=== PATIENT | female | born 1990 | race Caucasian/White ===

== ENCOUNTER 2023-07-27 15:13 | Emergency (ER) | payer OTHER, SELFPAY ==
[2023-07-27 15:31] VITALS: BP 116/71; PULSE 66; RESP 16; TEMP 36.9; O2SAT 100
--- NOTE | 2023-07-27 15:41 | ED.SKABFB ---
HPI - Skin/Abscess/Foreign Bdy General Chief complaint: Skin/Abscess/Foreign Body Stated complaint: Posion Jaida Time Seen by Provider: 07/27/23 15:41 Source: patient Mode of arrival: ambulatory Limitations: no limitations History of Present Illness HPI narrative: 33-year-old female presents with complaint of poison jaida for 1 week. Started to bilateral hands and wrists and since then has spread to trunk, bilateral legs. Applying triamcinolone steroid cream without relief of symptoms. All systems reviewed and negative except as noted above. Related Data Allergies Allergy/AdvReac Type Severity Reaction Status Date / Time No Known Allergies Allergy Verified 07/27/23 15:30 Review of Systems Review of Systems: CONSTITUTIONAL: Denies fever, chills, or sweats. EYES: Denies visual changes, redness, or discharge. ENT: Denies rhinorrhea, congestion, sore throat, or otalgia. CARDIOVASCULAR: Denies chest pain, palpitations, or edema. RESPIRATORY: Denies cough or dyspnea. GASTROINTESTINAL: Denies abdominal pain, nausea, vomiting, or diarrhea. GENITOURINARY: Denies dysuria or hematuria. SKIN: Reports poison jaida rash with itching. MUSCULOSKELETAL: Denies back pain, joint pain, or myalgia. NEUROLOGIC: Denies headache, numbness, or weakness. PSYCHIATRIC: Denies anxiety or depression. All other systems reviewed are negative, except as documented in HPI. PMFSH Comments At time of signature, agree with nursing past medical, surgical, social and family history. There is no relevant family history pertinent to the presenting complaint. Exam Narrative: GENERAL: This is a well-nourished, well-developed patient, in no apparent distress. HEAD: normocephalic, atraumatic. EYES: PERRL. Sclera clear/white. Vision is grossly intact. EARS: External ears normal NOSE: External nose normal NECK: Neck supple, non-tender without lymphadenopathy, masses or thyromegaly. CARDIOVASCULAR: Regular rate and rhythm without murmurs, gallops, or rubs. RESPIRATORY: Clear to auscultation. Breath sounds equal bilaterally. No wheezes, rales, or rhonchi. SKIN: warm, Dry, intact, good texture and turgor. Erythematous fascicular rash to bilateral thighs, left lower extremity, bilateral hands and wrists, right upper back NEURO: awake, alert, and oriented to person, place and time. There were no obvious focal neurologic abnormalities. EXTREMITIES: No joint tenderness, effusion, or edema noted. Course Course Level of Care: Express Care Visit Vital Signs Vital signs: Vital Signs Temperature 36.9 C 07/27/23 15:31 Pulse Rate 66 07/27/23 15:31 Respiratory Rate 16 07/27/23 15:31 Blood Pressure 116/71 07/27/23 15:31 Pulse Oximetry 100 07/27/23 15:31 Oxygen Delivery Room Air 07/27/23 15:31 Temperature 36.9 C 07/27/23 15:31 Pulse Rate 66 07/27/23 15:31 Respiratory Rate 16 07/27/23 15:31 Blood Pressure 116/71 07/27/23 15:31 Pulse Oximetry 100 07/27/23 15:31 Oxygen Delivery Room Air 07/27/23 15:31 Reviewed MDM - Skin/Abscess/Foreign Bdy MDM Narrative Medical decision making narrative: Patient is aware of diagnosis, understands and agrees to treatment plan. Anticipatory guidance given. Patient agrees to follow-up as directed and is aware of reasons to seek care at the emergency department. Portions of this record may have been created with voice recognition software Differential Diagnosis Differential diagnosis: Likely urticaria and contact dermatitis Discharge Plan Discharge Clinical Impression: Dermatitis due to plants, including poison jaida, sumac, and oak Patient Disposition: Home, Self-Care Condition: Stable Instructions: Antibiotic Form, Poison Jaida (ED) Additional Instructions: You were given an intramuscular dose of Kenalog today to treat poison jaida. Apply topical steroid cream twice a day sparingly to affected areas. Avoid applying to face. Take Benadryl as needed for itching. Avoid scrat
[2023-07-27] MEDS: TRIAMCINOLONE ACET INJ 40 MG/ML VIAL IM (15:50)
== END 2023-07-27 16:16 | disposition home or self-care (01) ==
PROVIDERS: Emergency Provider Nurse Practitioner Family
DX: L25.5 Unspecified contact dermatitis due to plants, except food (principal)
CPT/HCPCS: 96372; 99213; G0463; J3301

== ENCOUNTER 2023-09-17 12:23 | Emergency (ER) | payer OTHER, SELFPAY ==
[2023-09-17 12:28] VITALS: BP 126/78; PULSE 61; RESP 20; TEMP 36.4; O2SAT 100
--- NOTE | 2023-09-17 12:53 | ED.SKABFB ---
HPI - Skin/Abscess/Foreign Bdy General Chief complaint: Skin/Abscess/Foreign Body Stated complaint: Rash Time Seen by Provider: 09/17/23 12:50 Source: patient, RN notes reviewed and old records reviewed Mode of arrival: ambulatory Limitations: no limitations History of Present Illness HPI narrative: 33 year old female who presents to [facility] care with complaints of poison oneil rash back again since yesterday on her right arm and on her bilateral legs which is red raised irritated and itchy. Patient reports that she had the rash a few weeks ago also. Patient reports that she used Donn dish soap and vinegar to rash today, prior episode she received steroid shot and had some steroid cream.. Patient reports that they have baby goat and she thinks she has gotten from petting and playing with them,denies any recent yard work. complaint: rash Onset (ago): day(s) (since yesterday) Tetanus up to date: yes Location: RUE, LLE and RLE Severity: moderate Quality: pruritic Treatments prior to arrival: other (donn dish soap, vinegar) Related Data Allergies Allergy/AdvReac Type Severity Reaction Status Date / Time No Known Allergies Allergy Verified 07/27/23 15:30 Review of Systems Review of Systems: CONSTITUTIONAL: Denies fever, chills, or sweats. CARDIOVASCULAR: Denies chest pain, palpitations, or edema. RESPIRATORY: Denies cough or dyspnea. SKIN: Reports red raised rash to her right forearm and to bilateral legs which is itchy MUSCULOSKELETAL: Denies joint pain or myalgia. NEUROLOGIC: Denies headache, numbness, or weakness. All systems reviewed & are unremarkable except as noted in HPI and below [facility] Past Medical History Medical History (Updated 09/19/23 @ 08:37 by Amaya Clark NP) No pertinent past medical history Surgical History Surgical History (Updated 09/19/23 @ 08:38 by Amaya Clark NP) No history of previous surgery Social History Social History (Updated 09/19/23 @ 08:37 by Amaya Clark NP) Smoking status: Never smoker Alcohol intake: current Alcohol use details: social Substance use type: does not use Living arrangements: with family Gender identity (if verbalized by the patient): Female Comments At time of signature, agree with nursing past medical, surgical, social and family history. There is no relevant family history pertinent to the presenting complaint Exam Narrative: GENERAL: Well-appearing, well-nourished, and in no acute distress. HEAD: Normocephalic, atraumatic. EYES: PERRLA, conjunctivae clear, and EOMI. ENT: Mucous membranes moist. Oropharynx without edema, erythema or lesions. NECK: Supple. No lymphadenopathy CHEST: Clear to auscultation. No respiratory distress.SAO2 100% on room air HEART: Regular rate and rhythm. SKIN: Warm, dry.? Patches of red raised rash which is itchy to right forearm and to bilateral legs NEURO:? Alert and oriented x3. PSYCH: Normal mood and affect Course Course Emergency Course: Patient is aware of diagnosis, understands and agrees to treatment plan.? Anticipatory guidance given.? Patient agrees to follow-up as directed and is aware of reasons to seek care at the emergency department. Portions of this record may have been created with voice recognition software Level of Care: Express Care Visit Vital Signs Vital signs: Vital Signs Temperature 36.4 C 09/17/23 12:28 Pulse Rate 61 09/17/23 12:28 Respiratory Rate 20 09/17/23 12:28 Blood Pressure 126/78 09/17/23 12:28 Pulse Oximetry 100 09/17/23 12:28 Oxygen Delivery Room Air 09/17/23 12:28 Temperature 36.4 C 09/17/23 12:28 Pulse Rate 61 09/17/23 12:28 Respiratory Rate 20 09/17/23 12:28 Blood Pressure 126/78 09/17/23 12:28 Pulse Oximetry 100 09/17/23 12:28 Oxygen Delivery Room Air 09/17/23 12:28 Reviewed MDM - Skin/Abscess/Foreign Bdy MDM Narrative Medical decision making narrative: Does not appear a
== END 2023-09-17 13:12 | disposition home or self-care (01) ==
PROVIDERS: Emergency Provider Registered Nurse
DX: L23.7 Allergic contact dermatitis due to plants, except food (principal)
CPT/HCPCS: 99213; G0463

== ENCOUNTER 2024-03-07 18:07 | Emergency (ER) | payer OTHER, SELFPAY ==
[2024-03-07 18:12] VITALS: BP 143/66; PULSE 74; RESP 16; TEMP 36.9; O2SAT 100
[2024-03-07 18:25] LABS: EDUAAPPEAR Clear; EDUABILI Negative (Negative); EDUABLOOD Negative (Negative); EDUACOLOR1 Yellow; EDUAGLUCOSE Negative (Negative); EDUAKETONE Negative (Negative); EDUALEUKO Negative (Negative); EDUANITRATE Negative (Negative); EDUAPH 5.5; EDUAPROTEIN Negative (Negative); EDUAUROBILI 0.2
--- NOTE | 2024-03-07 18:28 | ED.FEMALEGU ---
HPI - Female Genitourinary General Chief complaint: Urogenital-Female Stated complaint: Urinary Problem Time Seen by Provider: 03/07/24 18:22 Source: patient and RN notes reviewed Mode of arrival: ambulatory Limitations: no limitations History of Present Illness HPI Narrative: Patient presents today complaining of 2-3 day history of burning with urination and external vulvar itching that extends posteriorly. Denies vaginal discharge. No [id number] treatment prior to arrival. Related Data Allergies Allergy/AdvReac Type Severity Reaction Status Date / Time No Known Allergies Allergy Verified 03/07/24 18:21 Review of Systems Review of Systems: CONSTITUTIONAL: Denies body aches, fever, chills, or sweats. EYES: Denies visual changes, redness, or discharge. ENT: Denies rhinorrhea, congestion, sore throat, or otalgia. CARDIOVASCULAR: Denies chest pain, palpitations, or edema. RESPIRATORY: Denies cough or dyspnea. GASTROINTESTINAL: Denies abdominal pain, nausea, vomiting, or diarrhea. GENITOURINARY: + dysuria, vulvar itching SKIN: Denies rash, itching, or wounds. MUSCULOSKELETAL: Denies back pain, joint pain, or myalgia. NEUROLOGIC: Denies headache, numbness, tingling, or weakness. PSYCH: Denies depression or anxiety. PMFSH Past Medical History Medical History No pertinent past medical history Surgical History Surgical History No history of previous surgery Social History Social History Smoking status: Never smoker Alcohol intake: current Alcohol use details: social Substance use type: does not use Living arrangements: with family Gender identity (if verbalized by the patient): Female Comments At time of signature, I have reviewed and agree with nursing past medical, surgical, social and family history unless otherwise noted. Please see nursing chart for further information. There is no relevant family history pertinent to the presenting complaint Exam Narrative: GENERAL: Well-appearing, well-nourished, and in no acute distress. HEAD: Normocephalic, atraumatic. EYES: EOMI. No redness or drainage. Conjunctivae normal. ENT: Mucous membranes pink and moist. NECK: Normal AROM. CHEST: No respiratory distress. : Mild irritation to the vulva and surrounding the vagina. Scant white discharge. EXTREMITIES: Normal range of motion. No edema. SKIN: Warm, dry, no rash. Capillary refill normal. Normal skin turgor. NEURO: No focal deficits. Alert and oriented x3. Gait steady. PSYCH: Normal affect. No signs of depression or anxiety. Course Course Level of Care: Express Care Visit Vital Signs Vital signs: Vital Signs Temperature 98.5 F 03/07/24 18:12 Pulse Rate 74 03/07/24 18:12 Respiratory Rate 16 03/07/24 18:12 Blood Pressure 143/66 H 03/07/24 18:12 Pulse Oximetry 100 03/07/24 18:12 Oxygen Delivery Room Air 03/07/24 18:12 Temperature 98.5 F 03/07/24 18:12 Pulse Rate 74 03/07/24 18:12 Respiratory Rate 16 03/07/24 18:12 Blood Pressure 143/66 H 03/07/24 18:12 Pulse Oximetry 100 03/07/24 18:12 Oxygen Delivery Room Air 03/07/24 18:12 Reviewed MDM - Female Genitourinary MDM Narrative Medical decision making narrative: Urinalysis is not consistent with UTI. Patient's exam is likely consistent with candidal vulvovaginitis. Will treat with fluconazole. Recommend clotrimazole externally as well. Anticipatory guidance given. Differential Diagnosis Differential diagnosis: Likely urinary tract infection, bacterial vaginosis, vaginitis and cystitis Lab Data Attestation: I reviewed the patient's lab results. Labs: Lab Results 03/07/24 Range/Units 18:23 POC Urine Color Yellow POC Urine Clarity Clear POC Urine pH 5.5 POC Ur Specif [place] 1.030 POC Urine Protein Negative (Negative) POC Ur Glucose (UA) Negative (Negative) POC Urine Ketones Negative (Negative) POC Urine Blood Negative (Negative) POC Urine Nitrite Negative (Negative) POC Urine Bilirubin Negative (Negative) POC Urine Urobilinogen 0.2 POC U Leukocyte Esteras Negative (Negative) Critical Care Time Critical Care Time Critical Care Time: No Discharge Plan Discharge Clinical Impression: Candidal vulvovaginitis Patient Disposition: Home, Self-Care Condition: Stable Instructions: Yeast Infection (ED) Additional Instructions: Please take the fluconazole as prescribed. You can also try some external clotrimazole (Lotrimin) cream if needed. Follow-up with your PCP or OBGYN in 1 week if symptoms persist. Your blood pressure was elevated above 120/80 today at Urgent Care. This puts you above the threshold for follow up. Please schedule a followup visit with your personal physician as soon as possible, for further evaluation and treatment. Even blood pressure exceeding 120/80 may indicate pre-hypertension. Patient Language: U[place] Prescriptions: New fluconazole 150 mg tablet 150 mg PO Q3D Qty: 2 0RF Follow-up/Referrals: PHYSICIAN,SUPERINTENDENT CONCRETE MIXING PLANT [Primary Care Provider] - Time of Disposition: 18:36
--- NOTE | 2024-03-07 18:32 | PC.NURSE ---
NO UC ORDERED PER PROVIDER
== END 2024-03-07 18:39 | disposition home or self-care (01) ==
PROVIDERS: Emergency Provider Nurse Practitioner
DX: B37.31 Acute candidiasis of vulva and vagina (principal)
CPT/HCPCS: 81003; 99213; G0463

== ENCOUNTER 2024-11-10 10:48 | Emergency (ER) | payer OTHER, SELFPAY ==
[2024-11-10 10:54] VITALS: BP 140/69; PULSE 72; RESP 16; TEMP 36.7; O2SAT 100
--- NOTE | 2024-11-10 10:54 | ED_ITS ---
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 Onset one week. Denies vaginal discharge or odor. Says she is has not been sexually active with partner for a few months and is not concerned for . Denies hematuria, nausea, vomiting, abdominal pain, flank pain, constipation, diarrhea, fevers or chills. Related Data Allergies Allergy/AdvReac Type Severity Reaction Status Date / Time No Known Allergies Allergy Verified 03/07/24 18:21 Review of Systems Review of Systems: CONSTITUTIONAL: Denies body aches, fever, chills, or sweats. CARDIOVASCULAR: Denies chest pain, palpitations, or edema. RESPIRATORY: Denies cough or dyspnea. GASTROINTESTINAL: Denies abdominal pain, nausea, vomiting, or diarrhea. GENITOURINARY: Reports dysuria, itching denies frequency, urgency, hematuria, flank pain, discharge SKIN: Denies rash MUSCULOSKELETAL: Denies back pain or myalgia. [facility] Past Medical History Medical History No pertinent past medical history Surgical History Surgical History No history of previous surgery Social History Social History Smoking status: Never smoker Alcohol intake: current Alcohol use details: social Substance use type: does not use Living arrangements: with family Gender identity (if verbalized by the patient): Female Comments At time of signature, I have reviewed and agree with nursing past medical, surgical, social and family history unless otherwise noted. Please see nursing chart for further information. There is no relevant family history pertinent to the presenting complaint Exam Narrative: GENERAL: Well-appearing ENT: Mucous membranes pink and moist. NECK: Normal AROM. Supple. CHEST: No respiratory distress. Clear to auscultation. HEART: Regular rate and rhythm. ABDOMEN: Soft, nontender, nondistended, normal active bowel sounds. No CVA tenderness SKIN: Warm, dry, no rash. NEURO: No focal deficits. Alert and oriented x3. Gait steady. PSYCH: Normal affect. Course Course Emergency Course: Patient is aware of diagnosis, understands and agrees to treatment plan. Anticipatory guidance given. Patient agrees to follow-up as directed and is aw are of reasons to seek care at the emergency department. Portions of this record may have been created with voice recognition software Level of Care: Express Care Visit Vital Signs Vital signs: Reviewed MDM - Female Genitourinary MDM Narrative Medical decision making narrative: Discussed physical exam findings. will culture urine. Will treat for yeast at this time. Advised supportive measures and signs/symptoms to go to the ER. Pt is appropriate for outpt treatment and f/u. pt is agreeable. Differential Diagnosis Differential diagnosis: Likely urinary tract infection, bacterial vaginosis, vaginitis and cystitis Discharge Plan Discharge Clinical Impression: Vaginitis Patient Disposition: Home Condition: Stable Instructions: Antibiotic Form, Yeast Infection (ED) Additional Instructions: Keep skin clean, dry and well aerated Wear cotton underpants. Double rinse underpants after washing. Avoid fabric softeners for underpants and swimsuits. Wearing loose fitting pants/skirts allow air to circulate. Avoid wearing wet swimsuits for long periods of time. Avoid bubble baths or perfumed soap Rinse genital area well and pat dry gently Cool compresses may help relieve the redness/irritation. Follow up with your OBgyn as scheduled in 1 week Go to the ER for worsening symptoms or concerns Patient Language: New Zealander Prescriptions: New fluconazole 150 mg tablet 150 mg PO DAILY Qty: 2 0RF Follow-up/Referrals: PHYSICIAN,CIGARETTE MAKING MACHINE HOPPER FEEDER [Primary Care Provider, Internal Medicine] Time of Disposition: 11:11
[2024-11-10 11:08] LABS: EDUAAPPEAR Clear; EDUABILI Negative (Negative); EDUABLOOD Negative (Negative); EDUACOLOR1 Yellow; EDUAGLUCOSE Negative (Negative); EDUAKETONE Negative (Negative); EDUALEUKO Negative (Negative); EDUANITRATE Negative (Negative); EDUAPH 6.0; EDUAPROTEIN Negative (Negative); EDUASPGRAVITY 1.025; EDUAUROBILI 0.2
--- OUTSIDE RECORDS SUMMARY | 2024-11-10 12:25 | XMS_ITS | Encounter Summary ---
Author Organization [facility] Address [address] [place] [address] Phone Care Team Providers Care Music Critic Name Role Phone No, Physician Primary Care Provider [phone] Eden Peralta MENS LOCKER ROOM ATTENDANT Unavailable [phone] Encounter Details Date Type Department Care Team (Latest Contact Info) Description 09/08/2024 Results Follow-Up [facility] Medicine Reproductive Endocrinology [address] [id number] Natasha Weathers MD [address] [address] Surgical pathology Social History Tobacco Use Types Packs/Day Years Used Date Smoking Tobacco: Never Smokeless Tobacco: Never AUDIT-C Answer Date Recorded Q1: How often do you have a drink containing alc ohol? Patient declined 07/10/2024 Q2: How many drinks containi ng alcohol do you have on a typical day when you are drinking? Patient declined 07/10/2024 Q3: How often do you have si x or more drinks on one occasion? Patient declined 07/10/2024 Personal Safety Answer Date Recorded Have you ever been in or are you currently in a harmful physical or emotional relationship or is someone making you feel afraid or unsafe? Denies 09/03/2024 Comments No Sex and Gender Information Value Date Recorded Sex Assigned at Not on file Legal Sex Female 12:46 PM CDT Gender Identity Not on file Sexual Orientation Not on file documented as of this encounter Plan of Treatment Not on file documented as of this encounter Visit Diagnoses Not on filedocumented in this encounter Care Teams Music Critic Relationship Specialty Start Date End Date No, Physician PCP - General 07/18/23 Eden Peralta NP [address] [address] [place] [address] Nurse Practitioner Obstetrics and Gynecology 05/20/24 documented as of this encounter
--- OUTSIDE RECORDS SUMMARY | 2024-11-10 12:25 | XMS_ITS | Clinical Summary ---
Author Organization [facility] Address [address] [place] [address] Care Team Providers Care Furniture Mover Driver Name Role Phone None, Physician Primary Care Provider Unavailabl e Source Comments [facility],non-owned Affiliates and Associated Physician Practices is amultiple site organization consisting of ambulatory clinics and hospital sitesin [place], [place], [place] and [place]. This disclosure is being madepursuant to the Care Everywhere program and may not contain all information available regarding this patient. Last updated 17.[facility] [employer] [facility] [employer] Allergies No known active allergies Social History Tobacco Use Types Packs/Day Years Used Date Smoking Tobacco: Never Assessed Comments Unknown Sex and Gender Information Value Date Recorded Sex Assigned at Not on file Legal Sex Female 10:08 AM LUCERNE FARMER Gender Identity Not on file Sexual Orientation Not on file Last Filed Vital Signs Vital Sign Reading Time Taken Comments Blood Pressure 130/76 04/08/2024 8:19 PM LUCERNE FARMER Pulse 73 04/08/2024 8:19 PM LUCERNE FARMER Temperature 36.6 C (97.8 F) 04/08/2024 8:19 PM LUCERNE FARMER Respiratory Rate 18 04/08/2024 8:19 PM LUCERNE FARMER Oxygen Saturation 100% 04/08/2024 8:19 PM LUCERNE FARMER Inhaled Oxygen Concentration - - Weight 81.6 kg (180 lb) 04/08/2024 8:19 PM LUCERNE FARMER Height 177.8 cm (5' 10) 04/08/2024 8:19 PM LUCERNE FARMER Body Mass Index 25.83 04/08/2024 8:19 PM LUCERNE FARMER Plan of Treatment Health Maintenance Due Date Last Done Comments HIV SCREENING 01/14/2007 HEPATITIS C SCREENING 01/10/2010 DTAP/TDAP/TD VACCINES (1 - Tdap) 01/14/2011 HEPATITIS B VACCINE (1 of 3 - 19+ 3-dose series) 01/14/2011 PAP SMEAR 01/14/2013 HPV VACCINE (1 - 3-dose SCDM series) 01/14/2019 DEPRESSION SCREENING 02/27/2024 COVID-19 VACCINE (1 - 2023-2 5 season) 2024 INFLUENZA VACCINE (#1) 2024 11/26/2023 ZOSTER VACCINE (1 of 2) 01/14/2042 HIB VACCINE Aged Out No longer eligi ble based on patient's age to complete this topic MENINGOCOCCAL (Group B) VACC INE SHARED DECISION-MAKING Aged Out No longer eligibl e based on patient's age to complete this topic MENINGOCOCCAL GROUPS A/C/Y/W VACCINE Aged Out No longer eligible b ased on patient's age to complete this topic PNEUMOCOCCAL VACCINE Aged Out No long er eligible based on patient's age to complete this topic Insurance [employer]ET[employer] Care Teams Furniture Mover Driver Relationship Specialty Start Date End Date None, Physician PCP - General 04/08/24
--- OUTSIDE RECORDS SUMMARY | 2024-11-10 12:25 | XMS_ITS | Encounter Summary ---
Author Organization [facility] Address [address] [place] [address] Care Team Providers Care Social Media Director Name Role Phone No, Physician Primary Care Provider [phone] Eden Peralta WALLCOVERING TEXTURER Unavailable [phone] Encounter Details Date Type Department Care Team (Late st Contact Info) Description 04/29/2024 Orders Only [facility] Medical Group [facility] [address] [place] [id number] Scanning, Provider Social History Tobacco Use Types Packs/Day Years Used Date Smoking Tobacco: Never Smokeless Tobacco: Never Comments No Sex and Gender Information Value Date Recorded Sex Assigned at Not on file Legal Sex Female 12:46 PM CDT Gender Identity Not on file Sexual Orientation Not on file documented as of this encounter Plan of Treatment Not on file documented as of this encounter Procedures Procedure Name Priority Date/Time Associated Diagnosis Comments SCAN - LABS 04/29/2024 documented in this encounter Results * SCAN - LABS (04/29/2024) us Provider Scanning Final Result documented in this encounter Visit Diagnoses Not on filedocumented in this encounter Care Teams Social Media Director Relationship Specialty Start Date End Date No, Physician PCP - General 07/18/23 Eden Peralta NP [address] [place] [address] Nurse Practitioner Obstetrics and Gynecology 05/20/24 documented as of this encounter
--- OUTSIDE RECORDS SUMMARY | 2024-11-10 12:25 | XMS_ITS | Clinical Summary ---
Author Organization [facility] [address] [facility] Address [address] [place] [address] Care Team Providers Care Peoplesoft Functional Analyst Name Role Phone No, Physician Primary Care Provider [phone] Eden Peralat [facility] Unavailable Allergies No known active allergies Medications multivit-min/michi roscoe fumarate (MULTI VITAMIN ORAL) Take by mouth Active inulin (PREBIOTIC FIBER ORAL) Take by mouth Active Active Problems Problem Noted Date Diagnosed Date Uterine polyp 09/05/2024 Encounters Date Type Department Care Team Description 10/08/2024 Telephone [facility] Medicine Reproductive Endocrinology [address] [place] [phone] Andria Denis MG/ DNA Frag results 09/08/2024 Results Follow-Up [facility] Reproductive Endocrinology [address] [place] [phone] Natasha Weathers MD Surgical pathology 09/05/2024 2:27 PM CDT - 09/05/2024 11:59 PM CDT Hospital Encounter [facility] PATHOLOGY [address] [facility] [address] [place] [address] Discharge Disposition: Discharge to home or self care 09/05/2024 8:40 AM CDT Anesthesia Event [address], [address] [phone] Philip Dow MD 09/05/2024 7:27 AM CDT - 09/05/2024 11:59 PM CDT Hospital Encounter [address], [address] [place] [phone] Uterine polyp (Primary Dx) Discharge Disposition: Discharge to home or self care 09/05/2024 Orders Only [address], [address] [phone] John Garcia, DONTAE Female infertility (Primary Dx) 09/03/2024 Telephone [facility] Reproductive Endocrinology [address] [place] [phone] Natasha Weathers MD MG/reschedule procedure on 09-0509/03/[address] [address] Jane Eason, DONTAE Treatment Plan Update 08/26/2024 Telephone [facility] Reproductive Endocrinology [address] [place] [phone] Natasha Mirza RMA 08/25/2024 Telephone [facility] Reproductive Endocrinology [address] [place] [phone] Natasha Weathers MD MG/cd1 6-28/schedule HYS from Last 3 Months Immunizations Immunization Administration Dates Next Due Influenza, Trivalent, Preservative Free, Intramu scular 11/26/2023 Varicella 08/31/2024,08/02/2024 Surgical History Surgery Date Site/Laterality Comments APPENDECTOMY ARM SURGERY Left HYSTEROSCOPY W/ POLYPECTOMY 09/05/2024 HYSTEROSCOPY W/ POLYPECTOMY W/ AVETA MORCELLATOR Medical History Medical History Date Comments Ovarian cyst Family History Medical History Relation Name Comments Hypertension Father Lung cancer Other Endometriosis Sister Irritable bowel syndrome Sister Relation Name Status Comments Father Other Sister Social History Tobacco Use Types Packs/Day Years Used Date Smoking Tobacco: Never Smokeless Tobacco: Never Tobacco Cessation:Counseling Given: Not Answered AUDIT-C Answer Date Recorded Q1: How often [...] on file Sexual Orientation Not on file Obstetrics History Para Term AB IAB SAB Ectopic Multiple Livin g Live Births 2 2 2 Date Outcome GA Total Labor Labor/2nd/3rd Weight Sex Type Anes PTL Cookie A1 A5 Name Clin 03/2024 SAB 04/2024 SAB SAB Last Filed Vital Signs Vital Sign Reading Time Taken Comments Blood Pressure 114/71 09/05/2024 9:58 AM CDT Pulse 54 09/05/2024 10:01 AM CDT Temperature 36.5 C (97.7 F) 09/05/2024 9:20 AM CDT forehead Respiratory Rate 12 09/05/2024 10:01 AM CDT Oxygen Saturation 99% 09/05/2024 10:01 AM CDT Inhaled Oxygen Concentration - - Weight 89.1 kg (196 lb 8 oz) 09/05/2024 7:57 AM CDT Height 177.8 cm (5' 10) 09/05/2024 7:57 AM CDT Body Mass Index 28.19 09/05/2024 7:57 AM CDT Plan of Treatment Health Maintenance Due Date Last Done Comments Cervical Cancer Screening 1990 Depression Screening 1990 DTaP/Tdap/Td Vaccine (1 - Tdap) 01/14/2003 Hepatitis B Screening 01/14/2010 Regular Well Visit/Exam 18-64 01/14/2010 HPV Vaccines (1 - 3-dose SCD M series) 01/14/2019 Influenza Vaccine (#1) 2024 11/26/2023 Hepatitis C Screening Completed 07/31/2024 Varicella Vaccines Completed 08/31/2024, 08/02/2024 Pneumococcal vaccine <65 Aged Out No longer eligible based on patient's age to complete this topic Procedures Procedure Name Priority Date/Time Associated Diagnosis Comments SURGICAL PATHOLOGY Routine 09/05/2024 9: 31 AM CDT Female infertility HEPATITIS C ANTIBODY Routine 07/31/2024 10:46 AM CDT Screening examination for venereal disease from Last 3 Months or Most Recently Relevant to Health Maintenance Results * Surgical pathology (09/05/2024 9:31 AM CDT) Tissue (Endometrial biopsy) 09/05/2024 9:31 AM CDT 09/05/2024 11:55 AM CDT Narrative PATHOLOGY [facility] - 09/08/2024 10:28 AM CDT EPIC results best viewed via link to PDF [facility] [place] [address] Note to Patients: This report may contain a detailed description of human tissue sent by a health care provider to the laboratory for pathologic evaluation. The content of this report is essential for diagnosis and may provide important critical findings. This information may be unfamiliar to patients to review without a medical professional present. It is advised that the patient review this report in the presence of a health care provider who can answer questions and explain the details. SURGICAL PATHOLOGY REPORT FINAL Patient Name: KESHA GHOSH Gender: F : 1990 (Age: 34) Address: [address] [place], [place] [id number] Hospital #: [id number] Taken:09/05/2024 Received:09/05/2024 Reported: 09/08/2024 Patient Type: [facility] SPECIMEN Service: UNKNOWN Location: Physician(s): Ovi Alfredo M.D. Diagnosis: Uterus, endometrium, biopsy - Proliferative pattern endometrium with focal breakdown - No evidence of hyperplasia or malignancy j/09/08/2024 10:28 By this signature, I attest that the above diagnosis is based upon my personal examination of the slides(and/or other material indicated in the diagnosis). Mark Chung M.D., Ph.D. Report Electronically Reviewed and Signed Out By Mark Chung M.D., Ph.D. 09/08/2024 10:28:54 History: The patient is a 34-year-old woman presenting for female infertility. Operative procedure: Uterine/endometrial tissue biopsy. Specimen(s) Received: A: Endometrial tissue Gross Description: Received in formalin, labeled with the patient s identifiers and endometrial tissue, are multiple soft garza-pink fragments of tissue measuring 2.8 x 1.1 x 0.1 cm in aggregate. Labeled A1. Jar 0. elsw/09/05/2024 14:47 PA(s): Yumiko Garcia By this signature, I attest that the above diagnosis is based upon my personal examination of the slides(and/or other material). Addenda/Procedures The performance characteristics of some immunohistochemical stains, fluorescence in-situ hybridization tests and immunophenotyping by flow cytometry cited in this report (if any) were determined by the Surgical Pathology and Flow Cytometry Departments at [facility] as part of an ongoing manufacturing quality engineer program and in compliance with federally mandated regulations drawn from the Clinical Laboratory Improvement Act of 1988 (CLIA '88). Some of these tests rely on the use of analyte specific reagents and are subject to specific labeling requirements by the US Food and Drug Administration. Such diagnostic tests may only be performed in a facility that is certified by the Department of Health and Human Services as a high complexity laboratory under CLIA '88. The FDA has determined that such clearance or approval is not necessary. This test is used for clinical purposes. It should not be regarded as investigational or for research. Nevertheless, federal rules concerning the medical use of analyte specific reagents require that the following disclaimer be attached to the report: This test was developed and its performance characteristics determined by the Surgical Pathology and Flow Cytometry Departments of [facility]. It has not been cleared or approved by the U. S. Food and Drug Administration. IMAGES AND SCANNED DOCUMENTS, IF INCLUDED, ONLY VIEWABLE IN PDF VERSION OF REPORT us Ovi Alfredo MD LAB PATHOLOGY ORDERABLES F inal Result PATHOLOGY [facility] 3rd Floor [place], [place] [phone] * Hepatitis C antibody Blood (07/31/2024 10:46 AM CDT) Hep C Ab Nonreactive Nonreactive Comment:Antibodies to HCV no t detected. Does NOT exclude the possibility of recent exposure to HCV. Current interpretive data was last revised on 21 Blood 07/31/2024 10:4 6 AM CDT 07/31/2024 12:53 PM CDT Natasha Weathers MD LAB MICROBIOLOGY - GENERAL ORDERABLES Final Result Performing Organization Address City/State/[facility] Co de Phone Number [facility] Department [place] [address] from Last 3 Months or Most Recently Relevant to Health Maintenance [facility] H[facility]/O Address: [facility] [id number] [place] [id number] [facility] Advance Directives For more information, please contact: [phone] * Full Code (Latest Code Status on File) Date Activated Date Inactivated Comments 09/05/2024 7:28 AM 09/06/2024 5:21 AM Care Teams Peoplesoft Functional Analyst Relationship Specialty Start Date End Date No, Physician PCP - General 07/18/23 Eden Peralta NP [address] [facility] [address] [place] [address] Nurse Practitioner Obstetrics and Gynecology 05/20/24
== END 2024-11-10 11:15 | disposition home or self-care (01) ==
PROVIDERS: Emergency Provider Nurse Practitioner Family
DX: N76.0 Acute vaginitis (principal)
CPT/HCPCS: 81003; 87086; 99213; G0463